=== PATIENT | male | born 1995 | race Caucasian/White ===

== ENCOUNTER 2016-05-16 15:09 | Emergency (ER) | payer OTHER ==
[2016-05-16 17:50] VITALS: BP 146/85
--- NOTE | 2016-05-16 18:45 | UC ---
Respiratory Complaint HPI - HPI Summary HPI Summary: 5 days of cough, chills, body aches. Temp up to 101, but lower today, last dose of ibuprofen was this morning. Decreased appetite, but no vomiting or diarrhea. + headache. - History of Current Complaint Chief Complaint: UCRespiratory Stated Complaint: COUGH Time Seen by Provider: 05/16/16 18:31 Hx Obtained From: Patient Onset/Duration: Gradual Onset, Lasting Days - 5 Timing: Constant Severity Initially: Moderate Severity Currently: Moderate Character: Cough: Nonproductive Aggravating Factors: Exertion Alleviating Factors: OTC Meds Associated Signs And Symptoms: Positive: Fever, Chills - Risk Factors Pulmonary Embolism Risk Factors: Negative Cardiac Risk Factors: Negative Pseudomonas Risk Factors: Negative Tuberculosis Risk Factors: Negative - Allergies/Home Medications Allergies/Adverse Reactions: Allergies Allergy/AdvReac Type Severity Reaction Status Date / Time No Known Allergies Allergy Verified 05/16/16 17:49 Home Medications: Home Medications Ascorbic Acid TAB* [Vitamin C TAB*] 500 mg PO DAILY PRN 05/16/16 [History Confirmed 05/16/16] Ibuprofen TAB* [Advil TAB*] 400 mg PO Q8H PRN 05/16/16 [History Confirmed ] Vahbbczxqvxny-Vrqhagsamj-Cabqc [Nyquil Severe Cold/Flu 5-6.25-10-325 mg/15Ml] 2 tab PO QPM PRN 05/16/16 [History Confirmed 05/16/16] guaiFENesin ER TAB [Mucinex*] 600 mg PO ONCE PRN 05/16/16 [History Confirmed 05/31] PMH/Surg Hx/FS Hx/Imm Hx Previously Healthy: Yes - Surgical History Surgical History: None - Family History Known Family History: Positive: Other - father CA pancreas, lymphoma age 50 - Social History Occupation: Student Lives: Alone - --dorm Alcohol Use: Weekly Alcohol Amount: 10 Substance Use Type: None Smoking Status (MU): Current Some Day Smoker Review of Systems Constitutional: Fever, Fatigue Skin: Negative Eyes: Negative ENT: Sore Throat Respiratory: Cough Cardiovascular: Negative Gastrointestinal: Negative Genitourinary: Negative Motor: Negative Neurovascular: Negative Musculoskeletal: Arthralgia Neurological: Headache Psychological: Negative All Other Systems Reviewed And Are Negative: Yes Physical Exam Triage Information Reviewed: Yes Appearance: Ill-Appearing - looks mildly unwell. Vital Signs: Initial Vital Signs Temp 98.3 F 05/16/16 17:42 Pulse 72 05/16/16 17:42 Resp 20 05/16/16 17:42 BP 146/85 05/16/16 17:42 Pulse Ox 100 05/16/16 17:42 Eyes: Positive: Conjunctiva Clear ENT: Positive: Pharyngeal erythema Neck exam: Normal Neck: Positive: Supple, Nontender, No Lymphadenopathy Respiratory: Positive: Lungs clear, Normal breath sounds Cardiovascular: Positive: RRR, No Murmur Abdomen Description: Positive: Nontender, No Organomegaly, Soft Musculoskeletal Exam: Normal Neurological Exam: Normal Neurological: Positive: Alert, Muscle Tone Normal Psychological Exam: Normal Skin Exam: Normal UC Diagnostic Evaluation - Laboratory O2 Sat by Pulse Oximetry: 100 Respiratory Course/Dx - Course Course Of Treatment: symptomatic treatment of influenza - Differential Dx/Diagnosis Differential Diagnosis/HQI/PQRI: Bronchitis, Influenza, Laryngitis, Sinusitis Provider Diagnoses: influenza Discharge - Discharge Plan Condition: Stable Disposition: HOME Patient Education Materials: Influenza (ED) Forms: *School Release Additional Instructions: Continue symptomatic treatment, with continued high intake of fluids, but try to get some nutrition (soups, eggs, toast, yogurt etc) Use ibuprofen 600mg every 6 hours as needed for aching and fever.
== END 2016-05-16 18:59 | disposition home or self-care (01) ==
LOC: EDBD → UCCORT 15:09
DX: J11.1 Influenza due to unidentified influenza virus with other respiratory manifestations (principal); Z72.0 Tobacco use
CPT/HCPCS: 99201; G0463

== ENCOUNTER 2017-03-10 17:42 | Emergency (ER) | payer OTHER ==
[2017-03-10 18:34] VITALS: BP 127/74
--- NOTE | 2017-03-10 18:35 | UC ---
Skin Complaint HPI - HPI Summary HPI Summary: Pt presents with tick bite. He tells me that 3 days ago he went hunting. Earlier today his roommate noticed a tick attached to his upper back. The tick was removed. Pt is here concerned about lyme disease. Denies fever, chills, headache, joint pain/swelling, SOB, chest pain, abdominal pain, N/V/D/C. - History of Current Complaint Chief Complaint: UCSkin Time Seen by Provider: 03/10/17 18:34 Stated Complaint: TICK BITE Hx Obtained From: Patient Skin Exposure Onset/Duration: Days Ago - Allergy/Home Medications Allergies/Adverse Reactions: Allergies Allergy/AdvReac Type Severity Reaction Status Date / Time No Known Allergies Allergy Verified 03/10/17 18:35 Home Medications: Home Medications NK [No Home Medications Reported] 03/10/17 [History Confirmed 03/10/17] Review of Systems Constitutional: Negative Skin: Other - Tick bite upper back Eyes: Negative ENT: Negative Respiratory: Negative Cardiovascular: Negative Gastrointestinal: Negative Neurological: Negative Psychological: Negative All Other Systems Reviewed And Are Negative: Yes PMH/Surg Hx/FS Hx/Imm Hx Previously Healthy: Yes - Surgical History Surgical History: None - Family History Known Family History: Positive: Other - father [place] pancreas, lymphoma age 50 - Social History Alcohol Use: Weekly Alcohol Amount: 10 Substance Use Type: None Smoking Status (MU): Current Some Day Smoker - Immunization History Most Recent Influenza Vaccination: HAS NOT HAD Physical Exam Triage Information Reviewed: Yes Appearance: Well-Appearing, Well-Nourished Vital Signs: Initial Vital Signs Temp 98.3 F 03/10/17 18:28 Pulse 69 03/10/17 18:28 Resp 18 03/10/17 18:28 BP 127/74 03/10/17 18:28 Pulse Ox 100 03/10/17 18:28 Vital Signs Reviewed: Yes ENT: Positive: Hearing grossly normal, Pharynx normal, TMs normal, Uvula midline. Negative: Pharyngeal erythema, Nasal congestion, Nasal drainage, TM bulging, TM dull, TM red, Tonsillar swelling, Tonsillar exudate, Sinus tenderness Neck: Positive: Supple, Nontender, No Lymphadenopathy Respiratory: Positive: Chest non-tender, Lungs clear, Normal breath sounds, No respiratory distress, No accessory muscle use Cardiovascular: Positive: RRR, No Murmur, Pulses Normal Neurological: Positive: Alert Psychological: Positive: Age Appropriate Behavior Skin: Positive: Other - Approx 5mm diameter of erythema with central clearing consistent with tick bite. Does not appear to have insect remains within skin. No edema, discharge, or streaking. Course/Dx - Course Course Of Treatment: Tick likely attached ~72 hours. Treatment options were discussed and pt elected for 200mg Doxy today. - Diagnoses Provider Diagnoses: Tick bite upper back Discharge - Discharge Plan Condition: Stable Disposition: HOME Patient Education Materials: Lyme Disease (ED), Tick Bite (ED) Referrals: Non Staff,Doctor [Primary Care Provider] - Additional Instructions: If you develop a fever, SOB, chest pain, new or worsening symptoms - please call your PCP or go to the ED. Monitor for signs and symptoms of lyme disease, such as a bulls eye rash, headache, neck pain, fatigue, joint pain or swelling.
[2017-03-10] MEDS ORDERED: DOXYcycline CAP(*) 100 MG PO ONE (18:44)
== END 2017-03-10 18:55 | disposition home or self-care (01) ==
LOC: UCCORT 17:42
DX: S20.469A Insect bite (nonvenomous) of unspecified back wall of thorax, initial encounter (principal); W57.XXXA Bitten or stung by nonvenomous insect and other nonvenomous arthropods, initial encounter; Y93.9 Activity, unspecified; Y92.9 Unspecified place or not applicable; Z72.0 Tobacco use
CPT/HCPCS: 99212; A9270-GY; G0463

== ENCOUNTER 2017-05-26 20:46 | Emergency (ER) | payer OTHER ==
[2017-05-26 22:05] VITALS: BP 131/76
[2017-05-26] MEDS ORDERED: Oseltamivir CAP* 75 MG CAP PO ONE (22:10)
--- NOTE | 2017-05-26 22:16 | ED ---
Respiratory - HPI Summary HPI Summary: 21 yr old male with cough, runny nose, myalgies, chills. Onset last night. He is around many people at [facility] with influenza. He has no other complaints. - History of Current Complaint Chief Complaint: UCGeneralIllness Stated Complaint: FLU LIKE SYMPTOMS Time Seen by Provider: 05/26/17 22:07 Pain Intensity: 6 - Allergy/Home Medications Allergies/Adverse Reactions: Allergies Allergy/AdvReac Type Severity Reaction Status Date / Time No Known Allergies Allergy Verified 05/26/17 21:57 Home Medications: Home Medications Eucalyptus/Menthol [Leon Cough Drops] 1 melissa [place] DAILY PRN 05/26/17 [History Confirmed 05/26/17] Ibuprofen TAB* [Advil TAB*] 400 mg PO Q6H PRN 05/26/17 [History Confirmed ] Phenylephrine/Dm/Acetaminop/GG [Daytime Severe Cold-Flu Liquid] 30 ml PO DAILY PRN 05/26/17 [History Confirmed 05/26/17] PMH/Surg Hx/FS Hx/Imm Hx Infectious Disease History: No Infectious Disease History: Reports: Traveled Outside the [place] in Last 30 Days - RETURNED FROM [place] 05/18/17 Denies: History Other Infectious Disease - Family History Known Family History: Positive: Other - father CA pancreas, lymphoma age 50 - Social History Occupation: Student Lives: Dormitory/Roommates Alcohol Use: Weekly Alcohol Amount: 10 Substance Use Type: Reports: None Smoking Status (MU): Current Some Day Smoker Type: Cigarettes Length of Time of Smoking/Using Tobacco: 4 YRS Review of Systems Positive: Fever, Chills Positive: Nasal Discharge Positive: Cough Positive: Myalgia All Other Systems Reviewed And Are Negative: Yes Physical Exam Triage Information Reviewed: Yes Vital Signs On Initial Exam: Initial Vitals Temp Pulse Resp BP Pulse Ox 99 F 80 18 131/76 100 05/26/17 22:02 05/26/17 22:02 05/26/17 22:02 05/26/17 22:02 05/26/17 22:02 Vital Signs Reviewed: Yes Appearance: Positive: Well-Appearing, No Pain Distress Skin: Positive: Warm, Skin Color Reflects Adequate Perfusion Eyes: Positive: EOMI ENT: Positive: Pharyngeal erythema, Nasal congestion, Nasal drainage, TMs normal Neck: Positive: Nontender Respiratory/Lung Sounds: Positive: Clear to Auscultation, Breath Sounds Present Cardiovascular: Positive: RRR. Negative: Murmur Abdomen Description: Positive: Nontender Musculoskeletal: Positive: Strength/ROM Intact Neurological: Positive: Sensory/Motor Intact, Alert, Oriented to Person Place, Time, CN Intact II-III Psychiatric: Positive: Normal - [place] Coma Scale Best Eye Response: 4 - Spontaneous Best Motor Response: 6 - Obeys Commands Best Verbal Response: 5 - Oriented Coma Scale Total: 15 Diagnostics - Vital Signs Vital Signs Temp Pulse Resp BP Pulse Ox 05/26/17 22:02 99 F 80 18 131/76 100 - Laboratory Lab Statement: Any lab studies that have been ordered have been reviewed, and results considered in the medical decision making process. Disposition - Course Course Of Treatment: 21 yr old with influenza. Rx tamiflu - Diagnoses Provider Diagnoses: Influenza Discharge - Discharge Plan Condition: Good Disposition: HOME Prescriptions: Oseltamivir CAP* [Tamiflu CAP*] 75 mg PO BID #10 cap Patient Education Materials: Influenza (ED) Referrals: [facility] [Outside] No Primary Care Phys,NOPCP [Primary Care Provider] -
== END 2017-05-26 22:17 | disposition home or self-care (01) ==
LOC: UCCORT 20:46
DX: J11.1 Influenza due to unidentified influenza virus with other respiratory manifestations (principal); Z72.0 Tobacco use
CPT/HCPCS: 99212; A9270-GY; G0463

== ENCOUNTER 2017-06-10 17:39 | Emergency (ER) | payer OTHER ==
[2017-06-10 18:20] VITALS: BP 137/93
--- NOTE | 2017-06-10 19:06 | ED ---
Headache - HPI Summary HPI Summary: 21 yr old male with 8-9/10, sudden onset of right frontal/temporal headache, 48 hours ago. He says it came on out of the blue. No change in vision, hearing, speech, swallowing, no change in strenght, gait, or sensation. He states he has not a history of headaches. He denies fever, chills, neck stiffness. he states he has some light sensitivity. - History Of Current Complaint Chief Complaint: UCHeadache Stated Complaint: HEADACHE Time Seen by Provider: 06/10/17 18:54 - Allergies/Home Medications Allergies/Adverse Reactions: Allergies Allergy/AdvReac Type Severity Reaction Status Date / Time No Known Allergies Allergy Verified 06/10/17 18:20 PMH/Surg Hx/FS Hx/Imm Hx Infectious Disease History: No Infectious Disease History: Denies: History Other Infectious Disease, Traveled Outside the [place] in Last 30 Days - Family History Known Family History: Positive: Other - father [place] pancreas, lymphoma age 50 - Social History Alcohol Use: Weekly Alcohol Amount: 10 Substance Use Type: Reports: None Smoking Status (MU): Current Some Day Smoker Type: Cigarettes Length of Time of Smoking/Using Tobacco: 4 YRS Review of Systems Positive: Headache. Negative: Weakness, Paresthesia, Numbness, Syncope, Slurred Speech All Other Systems Reviewed And Are Negative: Yes Physical Exam Triage Information Reviewed: Yes Vital Signs On Initial Exam: Initial Vitals Temp Pulse Resp BP Pulse Ox 98.3 F 58 18 137/93 100 06/10/17 18:17 06/10/17 18:17 06/10/17 18:17 06/10/17 18:17 06/10/17 18:17 Vital Signs Reviewed: Yes Appearance: Positive: Well-Appearing, No Pain Distress Skin: Positive: Warm, Skin Color Reflects Adequate Perfusion Head/Face: Positive: Normal Head/Face Inspection, Other - his forehead, scalp are non tender. Eyes: Positive: EOMI, JARROD Neck: Positive: Supple, Nontender. Negative: Nuchal Rigidity Respiratory/Lung Sounds: Positive: Clear to Auscultation, Breath Sounds Present Cardiovascular: Positive: RRR. Negative: Murmur Abdomen Description: Positive: Nontender Musculoskeletal: Positive: Strength/ROM Intact Neurological: Positive: Sensory/Motor Intact, Alert, Oriented to Person Place, Time, CN Intact II-III, Normal Gait, Finger to Nose - normal, Speech Normal - [place] Coma Scale Best Eye Response: 4 - Spontaneous Best Motor Response: 6 - Obeys Commands Best Verbal Response: 5 - Oriented Coma Scale Total: 15 Diagnostics - Vital Signs Vital Signs Temp Pulse Resp BP Pulse Ox 06/10/17 18:17 98.3 F 58 18 137/93 100 - Laboratory Lab Statement: Any lab studies that have been ordered have been reviewed, and results considered in the medical decision making process. Headache Course/Dx - Course Course Of Treatment: 21 yr old with sudden onset headache. he declined ambulance transfer to ER. He signed out AMA with risks understood. He verbalized he is going to the [place] [facility]. - Diagnoses Provider Diagnoses: Headache, Hypertension Discharge - Discharge Plan Condition: Good Disposition: AGAINST MEDICAL ADVICE Referrals: No Primary Care PhysNOPCP [Primary Care Provider] -
== END 2017-06-10 19:03 | disposition left against medical advice (07) ==
LOC: UCCORT 17:39
DX: R51 Headache (principal); I10 Essential (primary) hypertension; F17.210 Nicotine dependence, cigarettes, uncomplicated
CPT/HCPCS: 99212; G0463